=== PATIENT | female | born 1990 | race Caucasian/White ===

== ENCOUNTER 2020-11-09 15:29 | Emergency (ER) | payer BC, SELFPAY ==
--- NOTE | ~2020-11-09 | CT_ITS ---
EXAMINATION: CTA chest PE protocol DATE: 11/09/2020 23:42 INDICATION: Chest pain and elevated d-dimer TECHNIQUE: Computed tomography angiography (CTA) of the chest was performed with 100 mL Omnipaque-350 intravenous contrast timed to evaluate the pulmonary arteries. Coronal maximum intensity projection 3D-reconstructions were created by the technologist. The dose-length product (DLP) was 483.92 mGy-cm. Automated exposure control and iterative reconstruction technique were employed. COMPARISON: None. FINDINGS: The pulmonary arteries are well-opacified. No pulmonary embolism is identified. There is mi ld dependent atelectasis. There is no pleural effusion or pneumothorax. No pathologically enlarged th oracic lymph nodes are identified. The heart size is normal. The visualized osseous structures are un remarkable. IMPRESSION: 1. No pulmonary embolism or acute cardiopulmonary abnormality. Reviewed, dictated and finalized at location A.
--- NOTE | ~2020-11-09 | XR_ITS ---
EXAMINATION: XR chest 2V EXAM DATE: 11/09/2020 15:44 INDICATION: Pain between shoulder blades. TECHNIQUE: Frontal and lateral projections of the chest obtained and reviewed. There is no prior ole dy for comparison. FINDINGS: The lungs are clear. There are no pleural effusions. The cardiomediastinal silhouette is within normal limits. There is no pneumothorax suspected. The bones and soft tissues are unremarkab le. IMPRESSION: No acute cardiopulmonary findings. Reviewed, dictated and finalized at location B.
--- NOTE | 2020-11-09 15:30 | ECG_ITS ---
Measurements Intervals [place] Rate: 82 P: 28 ND: 154 QRS: 55 QRSD: 92 T: 21 QT: 342 QTc: 400 Interpretive Statements SINUS RHYTHM MINIMAL Q WAVES- INFERIOR LEADS BASELINE ARTIFACT- I, II, AVR, V3-V4 BORDERLINE ECG Electronically Signed On 11-09-2020 17:04:07 CDT by Brian Brady D.O.
[2020-11-09 15:52] VITALS: BP 134/85; PULSE 83; RESP 18; TEMP 36.2; O2SAT 98
[2020-11-09 15:59] LABS: Basophils Absolute Auto 0.1 K/mm3 (0.0-0.1); Basophils Percent Auto 0.8 % (0.2-1.2); Eosinophils Absolute Auto 0.2 K/mm3 (0-0.3); Eosinophils Percent Auto 2.4 % (0-4.4); Hematocrit 41.1 % (37.0-47.0); Immature Granulocyte Absolute 0.03 K/mm3 (0.00-0.031); Immature Granulocyte Percent A 0.4 % (0-0.5); Lymphocytes Absolute Auto 2.57 K/mm3 (0.9-3.2); Lymphocytes Percent Auto 30.6 % (18.3-44.2); Mean Corpuscular HGB Conc 34.1 g/dl (32-36); Mean Corpuscular Hemoglobin 30.1 pg (26-34); Mean Corpuscular Volume 88.4 fl (80-100); Mean Platelet Volume 10.3 fl (7.4-10.4); Monocytes Absolute Auto 0.6 K/mm3 (0.1-0.6); Monocytes Percent Auto 6.7 % (2.6-8.5); Neutrophils Percent Auto 59.1 % (45.5-73.1); Platelet Count Result 332 k/mm3 (150-375); Red Blood Count 4.65 M/mm3 (4.2-5.4); Red Cell Distribution Width 12.1 % (11.5-14.5); White Blood Count 8.4 K/mm3 (4.5-10.0)
[2020-11-09 16:09] LABS: INR 0.8; Prothrombin Time 10.9 Seconds (11.1-14.7)
[2020-11-09 16:20] LABS: Troponin I < 0.012 ng/mL (0.000-0.034)
[2020-11-09 16:27] LABS: Anion Gap 10 mmol/L (8-16); Blood Urea Nitrogen 10 mg/dL (7-17); Calcium 9.3 mg/dL (8.4-10.2); Carbon Dioxide 20 mmol/L (22-30); Chloride 108 mmol/L (98-107); Estimated CRCL calculation 104 ml/min; Estimated Glomerular Filt Rate > 60; Glucose 99 mg/dL (65-110); Sodium 138 mmol/L (137-145)
[2020-11-09 16:59] LABS: Potassium 4.1 mmol/L (3.4-5.0)
[2020-11-09 20:36] VITALS: BP 116/75; PULSE 82; RESP 16; O2SAT 100
--- NOTE | 2020-11-09 20:39 | ECG_ITS ---
Measurements Intervals [place] Rate: 91 P: 27 WA: 146 QRS: 48 QRSD: 96 T: 16 QT: 343 QTc: 423 Interpretive Statements SINUS RHYTHM DELAYED PRECORDIAL R/S TRANSITION MINIMAL Q WAVES- INFERIOR LEADS BASELINE ARTIFACT- I, II, AVR BORDERLINE ECG Electronically Signed On 11-09-2020 22:18:04 CDT by Brian Brady D.O.
--- NOTE | 2020-11-09 21:01 | ED.CHESTPAIN ---
HPI - Chest Pain General Chief Complaint: Chest Pain Stated Complaint: chest pain Time Seen by Provider: 11/09/20 21:01 Source: patient Mode of arrival: ambulatory Limitations: no limitations History of Present Illness HPI narrative: Patient is a 30-year-old female who presents for evaluation of chest tightness. Patient reports she has had intermittent chest tightness and pain in the center of her chest over the past 4 days. Pain initially began on Monday, has been intermittent in nature and quite spontaneous. She states at times the pain is sharp in nature with radiation to both shoulders and does result in arm heaviness. She reports associated nausea. She reports some associated shortness of breath but denies current shortness of breath. No fever or cough. No pleuritic pain. No history of Covid or coagulopathy. No leg swelling, but does report some right-sided leg pain. Denies calf swelling. Denies recent car or air travel. She does take an oral contraceptive which she has been compliant with. Patient does not smoke. Related Data Home Medications Medication Instructions Recorded Confirmed norethindrone acetate 1.5 1 tablet PO DAILY 03/16/20 03/16/20 mg-ethinyl estradiol 30 mcg tablet Allergies Allergy/AdvReac Type Severity Reaction Status Date / Time No Known Allergies Allergy Mild Verified 11/09/20 15:30 Review of Systems Review of Systems: Narrative: CONSTITUTIONAL: Denies fever, chills, or sweats. EYES: Denies visual changes, redness, or discharge. ENT: Denies rhinorrhea, congestion, sore throat, or otalgia. CARDIOVASCULAR: Reports chest pain, denies palpitations or lower leg swelling RESPIRATORY: Denies cough, reports intermittent shortness of breath GASTROINTESTINAL: Denies abdominal pain, reports nausea GENITOURINARY: Denies dysuria or hematuria. SKIN: Denies rash or itching. MUSCULOSKELETAL: Denies back pain, joint pain, or myalgia. NEUROLOGIC: Denies headache, numbness, or weakness. [facility] Family History Family History Father Hypertension Patient's father is in good health Mother Hypertension Grandparent Family history of Alzheimer's disease Family history of malignant neoplasm of breast Family history of heart disease in male family member before age 55 Social History Social History Smoking status: Never smoker Second hand tobacco smoke exposure: No Alcohol intake: current Gender identity (if verbalized by the patient): Female Exam Narrative: Exam Narrative: GENERAL: Awake, alert, conversant HEAD: Normocephalic, atraumatic. EYES: PERRLA and EOMI. ENT: Nares clear, no rhinorrhea or epistaxis. Mucous membranes moist. NECK: Supple. CHEST: No respiratory distress, breathing even and non labored, no chest wall tenderness HEART: Regular rate, sinus rhythm, no murmurs, rubs, gallops ABDOMEN:Non distended, non tender EXTREMITIES: Normal range of motion. No edema. No calf tenderness bilaterally. Negative Homans' sign. SKIN: Warm, dry, no rash. NEURO:No focal deficits. Alert and oriented x3 Course Vital Signs Vital signs: Vital Signs Temperature 36.2 C L 11/09/20 15:52 Pulse Rate 83 11/09/20 15:52 Respiratory Rate 18 11/09/20 15:52 Blood Pressure 134/85 11/09/20 15:52 Pulse Oximetry 98 11/09/20 15:52 Temperature 36.2 C L 11/09/20 15:52 Pulse Rate 74 11/09/20 23:46 Respiratory Rate 17 11/09/20 23:46 Blood Pressure 123/72 11/09/20 23:46 Pulse Oximetry 100 11/09/20 23:46 MDM - Chest Pain MDM Narrative Medical decision making narrative: Patient presented for evaluation of chest pain. At the time of assessment, ABCs are intact and vital signs are stable. Pain is not reproducible on exam. Patient's EKG and labs are without significant high risk changes. Cardiac risk factors reviewed. Aside from a family history notable
[2020-11-09 21:13] LABS: Troponin I < 0.012 ng/mL (0.000-0.034)
[2020-11-09 21:22] VITALS: BP 142/102; PULSE 81; RESP 18; O2SAT 100
[2020-11-09 22:22] LABS: D Dimer 0.85 ug/mL (<0.48)
[2020-11-09 22:31] LABS: Troponin I < 0.012 ng/mL (0.000-0.034)
[2020-11-09 22:48] VITALS: BP 124/73; PULSE 83; RESP 13; O2SAT 100
[2020-11-09] MEDS: ASPIRIN 81 MG CHEWABLE TABLET 324 MG PO (22:56)
[2020-11-09] MEDS: KETOROLAC 15 MG/ML VIAL (*BKC) IV PUSH (22:56)
[2020-11-09] MEDS: ONDANSETRON INJ 4 MG/2 ML VIAL IV PUSH (22:57)
[2020-11-09 23:46] VITALS: BP 123/72; PULSE 74; RESP 17; O2SAT 100
[2020-11-10 01:06] VITALS: BP 130/75; PULSE 96; RESP 20; O2SAT 100
== END 2020-11-10 01:07 | disposition home or self-care (01) ==
PROVIDERS: Emergency Medicine; Emergency Provider Emergency Medicine; PCP Internal Medicine
DX: R07.89 Other chest pain (principal); R94.31 Abnormal electrocardiogram [ECG] [EKG]
CPT/HCPCS: 36415; 71046; 71275; 80048; 84484; 85025; 85380; 85610; 85730; 93005; 96374; 96375; 99284; A9270; J1885; J2405; Q9967

== ENCOUNTER → 2021-04-07 10:42 | Outpatient (CLI) | payer BC, SELFPAY ==
[2021-04-07 19:39] LABS: SARS-CoV-2 RNA PCR Negative
== END ==
PROVIDERS: PCP Physician Assistant; Visit Provider Physician Assistant
DX: Z20.822 Contact with and (suspected) exposure to COVID-19 (principal)
CPT/HCPCS: C9803; U0003; U0005